=== PATIENT | female | born 1950 | race Caucasian/White ===

== ENCOUNTER → 2019-04-16 20:17 | Outpatient (CLI) | payer MEDICARE, OTHER, SELFPAY ==
[2019-04-16] MEDS: Zolpidem Tartrate 5 MG Tablet PO (21:53)
== END ==
PROVIDERS: Family Provider Family Medicine; PCP Family Medicine; Referring Provider Psychiatry & Neurology Neurology; Visit Provider Psychiatry & Neurology Neurology
DX: G47.33 Obstructive sleep apnea (adult) (pediatric) (principal)
CPT/HCPCS: 95811

== ENCOUNTER → 2019-04-26 | Outpatient (CLI) | payer MEDICARE, OTHER, SELFPAY | END | disposition home or self-care (01) | LOC: SL 12:49 | PROVIDERS: Family Provider Family Medicine; PCP Family Medicine; Referring Provider Psychiatry & Neurology Neurology; Visit Provider Psychiatry & Neurology Neurology | DX: G47.33 Obstructive sleep apnea (adult) (pediatric) (principal) ==

== ENCOUNTER → 2019-05-07 11:00 | Outpatient (CLI) | payer MEDICARE, OTHER, SELFPAY | PROVIDERS: Family Provider Family Medicine; PCP Family Medicine; Referring Provider Psychiatry & Neurology Neurology; Visit Provider Psychiatry & Neurology Neurology | DX: R69 Illness, unspecified (principal) ==

== ENCOUNTER → 2019-05-28 11:00 | Outpatient (CLI) | payer MEDICARE, OTHER, SELFPAY | PROVIDERS: Family Provider Family Medicine; PCP Family Medicine; Referring Provider Psychiatry & Neurology Neurology; Visit Provider Psychiatry & Neurology Neurology | DX: Z46.89 Encounter for fitting and adjustment of other specified devices (principal) ==

== ENCOUNTER 2019-12-16 20:07 | Inpatient (IN) | payer MEDICARE, OTHER, SELFPAY ==
[2019-12-16 19:29] VITALS: BP 167/90; PULSE 88; RESP 17; TEMP 37.3; O2SAT 100
--- NOTE | 2019-12-16 19:55 | EKG12_ITS ---
Test Reason : CP Blood Pressure : / mmHG Vent. Rate : 099 BPM Atrial Rate : 099 BPM P-R Int : 108 ms QRS Dur : 074 ms QT Int : 358 ms P-R-T Axes : 030 -12 025 degrees QTc Int : 459 ms Sinus rhythm with short IA Otherwise normal ECG When compared with ECG of 16-DEC-2019 20:16, MANUAL COMPARISON REQUIRED, DATA IS UNCONFIRMED Confirmed by YOSEF CAT, ALEXANDRO ([id number]), order editor STEF IQBAL ([id number]) on 12/18/2019 8:16:18 AM Referred By: DR GAVIN Confirmed By:ALEXANDRO NAVAS MD
[2019-12-16 20:08] VITALS: BMI 39.0
[2019-12-16 20:11] VITALS: BMI 39.1
--- NOTE | 2019-12-16 20:14 | PCM.HP.STD ---
Problem List (1) NSTEMI (non-ST elevated myocardial infarction) Status: Acute (2) HTN (hypertension) Status: Chronic (3) HLD (hyperlipidemia) Status: Chronic History of Present Illness Date of Admission: 12/16/19 Chief Complaint: CHEST PAIN The patient is a 68 year old F with a significant history of hypertension; hyperlipidemia; CVA; morbid obesity and prediabetes who presents at [place] emergency department with chest pain that has been going on for 3 to 4 days. She describes her chest pain as a discomfort. Further, she describes her chest pain as a strain. Her chest pain was episodic but on the day of presentation it become a persistent. The chest pain is across her entire chest. The chest pain does not radiate. However she has pain in bilateral shoulders and bilateral hips that she attributes to a flare of histoplasmosis. She denies any aggravating factors to the chest. She went to [place] emergency department where she was given Toradol. The Toradol helped improve her pain. Aside Toradol, moving around help with her pain. She denies any nausea; vomiting; shortness of breath or diaphoresis. She reported about a week ago she had palpitations and her pulse was about 132. Her blood pressure that time was 130/69. At [place] emergency department she refused nitroglycerin because of side effects that were discussed with her. She reported that on the day of presentation she took 162 mg of aspirin. Her initial troponin at [place] was 0.15. Her troponin increased to 0.28. The normal troponin level at [facility] is 0.07. Patient was started on heparin drip and bolus from [place]. Her d-dimer was elevated; but age-adjusted age-adjusted was normal. EKG at [place] did not show ST elevation.It showed non-specific ST abnormalities. Her father had hi first heart attack in the 50s and another one in the 70s. Reportedly she had a stress test and a heart cath about 5 years ago. She reported that both of these tests were normal. Past Medical History Past Medical History (Chronic Problems): Chronic Problems HTN (hypertension) (Chronic) HLD (hyperlipidemia) (Chronic) Allergies latex Allergy (Verified 12/16/19 19:32) Hives Penicillins Allergy (Verified 04/16/19 13:56) Unknown Home Medications: Ambulatory Orders Medication Instructions Recorded Ascorbic Acid [Vitamin C] 1,000 mg PO 12/16/19 Ascorbic Acid/Bioflavonoids [C 1 ea PO DAILY 12/16/19 1,600-[id number]-Bd Cap] Aspirin [Aspirin EC] 81 mg PO DAILY 12/16/19 Biotin/Silicon Diox/l-Cysteine 1 ea PO DAILY 12/16/19 [Orlin Matrix 5000 ER Tablet] Cholecalciferol (Vitamin D3) 5,000 unit PO QWEEK 12/16/19 [Vitamin D3] Green Tea [place] Extract [Green Tea] 250 mg PO DAILY 12/16/19 Hydrochlorothiazide [Hctz] 25 mg PO DAILY 12/16/19 Losartan Potassium [Cozaar] 25 mg PO DAILY 12/16/19 Lysine 1,000 mg PO PRN PRN 12/16/19 Magnesium Oxide 500 mg PO QODAY 12/16/19 Methylsulfonylmethane [MSM] 1,000 mg PO DAILY 12/16/19 Niacin (Inositol Niacinate) 500 mg PO DAILY 12/16/19 [Niacin 500 mg Capsule] Omeprazole 20 mg PO DAILY 12/16/19 Potassium 2 tab PO QHS 12/16/19 Potassium 3 tab PO BREAKFAST 12/16/19 Pyridoxine HCl [Vitamin B-6] 100 mg PO DAILY 12/16/19 Red Yeast Rice 600 mg PO DAILY 12/16/19 Thiamine HCl [Vitamin B-1] 250 mg PO DAILY 12/16/19 Turmeric/Turmeric Root Extract 1 ea PO TID 12/16/19 [Turmeric 450-50 mg Capsule] Ubidecarenone/Vit E/Vit E Mix 1 tab PO DAILY 12/16/19 [Co-Enzyme Q10 100 mg Softgel] Vit A Palm,D3 in Cod Liver Oil [Sv 1 ea PO DAILY 12/16/19 Cod Liver Oil Softgel] Surgical History: - - Repair of torn meniscus Lives: Alone Smoking Status: Never smoker Alcohol: Occasional - *Family History Maternal History Items: Heart Disease Paternal History Items: Heart Disease - His father had a first heart attack in the 50s and another one in the 70s. Review of Systems Constitutional: Denies: Chills, Fever, Weight Change HEENT: Denies: Head Aches, Sinus Congestion, Sinus Drainage Cardiovascular: Reports: Chest Pain, Palpitations Respiratory: Denies: Cough, Shortness of breath at rest, Sputum production Gastrointestinal: Denies: Abdominal Pain, Nausea, Vomiting Genitourinary: Denies: Dysuria Musculoskeletal: Reports: Joint Pain. Denies: Joint Tenderness Skin: Denies: Rash, Wounds Neurological: Denies: Numbness, Tingling, Focal weakness Psychiatric: Denies: Anxiety, Depression, Homicidal Ideations, Suicidal Ideations Hematologic/ Lymphatic: Denies: Easy Bruising, Easy Bleeding VTE Information - Inpt Only VTE Present on Admission: No VTE Mechan Device Prophylaxis: None VTE Pharm Prophylaxis ordered?: No Reason prophylaxis not ordered:: Treatment Not Indicated - Started on heparin drip for non-ST elevation CO Patient Problems: Active and Suspected Problems NSTEMI (non-ST elevated myocardial infarction) (Acute) - Physical Exam Vitals/I&O's: Vital Signs Temp Pulse Resp BP Pulse Ox 99.2 F H 88 17 167/90 H 100 12/16/19 19:29 12/16/19 19:29 12/16/19 19:29 12/16/19 19:29 12/16/19 19:29 Oxygen Delivery Method Room Air Weight: 106.5 kg Body Mass Index (BMI) 39.0 General: Alert, Oriented x3, Cooperative HEENT: Atraumatic, PERRLA, EOMI, Normocephalic Neck: Supple, No JVD, Negative Carotid Bruits Lungs: Clear to auscultation, Normal air movement Cardiovascular: Regular rate, Normal S1, Normal S2, No murmurs Abdomen: Bowel Sounds Present, Soft, Non Tender, Obese Extremities: No edema, Capillary Refill Less than 3 Seconds Skin: No rashes, No breakdown Musculoskeletal: No Tenderness to Palpation of Joints or Extremities Neurological: Cranial nerves II-XII grossly intact Psych/Mental Status: Normal Affect, Appropriate Assessment/Plan All Active Problems NSTEMI (non-ST elevated myocardial infarction) (Acute) The patient is a 68 year old F with a significant history of hypertension; hyperlipidemia; CVA; morbid obesity and prediabetes who presents emergency department with chest pain that has been going on for 3 to 4 days; and found to have elevation of troponin consistent of non-ST elevation CO. Non-ST elevation CO Place on a monitored bed at PCU CXR at [facility] showed no acute abnormalities. EKG independently reviewed confirms no ST elevation. It showed nonspecific ST abnormalities. EKG at [facility] and hospital was unchanged. Reportedly took aspirin 172 mg on the day of presentation. ASA 81 mg p.o. daily continue Patient does not want any nitroglycerin. We will check lipid panel. Statin: Patient refuses statins. She reported that she had myalgia with statins. She is on multiple home remedies. Anticoagulation: Received heparin bolus and heparin drip was started from [place].; Continue heparin drip. Anti-P2Y12 Receptor antibody: Plavix and Brilinta were discussed with patient. Patient refused secondary to possible side effects. Serial cardiac enzymes Stat EKG as needed for chest pain Patient with low-grade fever ?Influenza screen. ordered Trend CBC and BMP. The case were discussed with cardiology. Cardiology will see patient in a.m. Keep patient on clear liquids in a.m. Hypertension On presentation blood pressure was not within goal. HCTZ; and Cozaar continued Labetalol PRN ordered. Trend blood pressures and adjust blood pressure medications. Morbid Obesity BMI of 39.1. Lifestyle modification discussed. DVT Prophylaxis Not indicated since patient is on heparin drip. Code Visit Inpatient E&M: 91957 Init Hosp L3
[2019-12-16 20:27] VITALS: PULSE 104
[2019-12-16 21:02] VITALS: O2SAT 99
[2019-12-16] MEDS: HEPARIN/D5w 25,000 UNITS 25,000 UNITS/250 ML IV.SOLN. 10 UNITS IV (21:10)
[2019-12-16 23:01] VITALS: PULSE 89
[2019-12-17] VITALS (17 sets, daily range): BP systolic 106–152; BP diastolic 50–78; PULSE 85–106; RESP 14–18; TEMP 36.4–37.1; O2SAT 93–98
[2019-12-17 00:25] LABS: Partial Thromboplast Time 37.4 Seconds (24.1-36.2)
[2019-12-17] MEDS: Ketorolac 10 MG Tablet PO (00:45)
[2019-12-17] MEDS: Heparin Injection (Vial) 5,000 UNIT/ML VIAL IV ×2 (00:48→07:39)
[2019-12-17] MEDS: 0.9% Saline Lock 10 ML Syringe IV ×3 (00:55→12:12)
--- NOTE | 2019-12-17 01:02 | EKG12_ITS ---
Test Reason : CP ADMIT Blood Pressure : / mmHG Vent. Rate : 094 BPM Atrial Rate : 094 BPM P-R Int : 112 ms QRS Dur : 078 ms QT Int : 368 ms P-R-T Axes : 043 -02 032 degrees QTc Int : 460 ms Normal sinus rhythm Nonspecific ST abnormality Abnormal ECG No previous ECGs available Confirmed by YOSEF CAT, ALEXANDRO ([id number]), conservation coordinator STEF IQBAL ([id number]) on 12/18/2019 8:16:31 AM Referred By: DR GAVIN Confirmed By:ALEXANDRO NAVAS MD
--- NOTE | 2019-12-17 01:31 | PCM.PN.BLA ---
Progress Note Patient complaining of chest pain 5/10; EKG with no STEMI; or acute ST or T-wave abnormality. Willing to accept nitro. Nitroglycerin sublingual prescribed. STROKE Vital Signs/Narrative: Vital Signs Temp Pulse Resp BP Pulse Ox 12/17/19 00:56 98.4 F 99 17 152/75 H 98 12/16/19 23:01 89
[2019-12-17] MEDS: Nitroglycerin (INPATIENT USE) 0.4 MG TAB.SUBL SUBLINGUAL ×2 (01:41→01:48)
--- NOTE | 2019-12-17 01:59 | NURSING ---
Pt given nitro 0.4mg SL x2 tablets. Pt rates CP @ 01/14 currently. Pt refusing any further doses of nitro. AHillerRN
[2019-12-17 02:56] LABS: Absolute Neutrophil Count 7.9 X10^3/uL (2.0-7.7); Basophil# 0.03 X10^3/uL; Basophil% 0.3 % (0-1); Eosinophil# 0.06 X10^3/uL; Eosinophils% 0.5 % (0-5); Hematocrit 32.7 % (37-47); Hemoglobin 10.5 g/dL (12.0-15.0); Lymphocyte % 23.4 % (19-41); Mean Corp Hgb Conc 32.1 g/dL (32-36); Mean Corpuscular Hgb 28.8 pg (27.0-32.0); Mean Corpuscular Volume 89.8 fL (81-99); Monocyte# 0.81 X10^3/uL; NRBC Flagged by Analyzer 0 % (0-5); Neutrophil # 7.93 X10^3/uL (2.7-7.7); Neutrophil % 68.6 % (47-70); Platelet Count 299 K/mm3 (150-450); RBC Distribution Width CV 12.8 % (11.6-14.6); RBC Distribution Width SD 42.5 fl (35.1-43.9); Red Blood Count 3.64 M/mm3 (4.2-5.4); White Blood Count 11.6 K/mm3 (4.4-11.0)
[2019-12-17 03:11] LABS: Anion Gap 5 (5-15); BUN 15 mg/dL (7-18); BUN/Creat Ratio 14.2 RATIO (10-20); Calcium,Total 8.7 mg/dL (8.5-10.1); Chloride 104 mmol/L (98-107); Cholesterol 229 mg/dL (200); Creatinine, Serum 1.06 mg/dL (0.55-1.02); EST Glomerular Filtration Rate 55 mL/min (>60); Est Glom Filt Rate - Afr Amer 66 mL/min (>60); Estimated Creatinine Clearance 46.34 ml/min; Glucose 142 mg/dL (74-106); High Density Lipoprotein 56 mg/dL; Potassium 3.4 mmol/L (3.5-5.1); Sodium Level 137 mmol/L (136-145); Triglycerides 95 mg/dL; Very Low Density Lipoprotein 19 mg/dL (5-40)
[2019-12-17] MEDS: Aspirin E.C. 81 MG Tablet PO (05:57)
[2019-12-17] MEDS: Losartan Potassium 25 MG Tablet PO (05:57)
[2019-12-17] MEDS: Pantoprazole Sodium 20 MG Tablet PO (05:57)
[2019-12-17 06:31] LABS: Partial Thromboplast Time 53.2 Seconds (24.1-36.2)
--- NOTE | 2019-12-17 11:25 | PCM.PN.HOSP ---
Patient Problems: Active and Suspected Problems NSTEMI (non-ST elevated myocardial infarction) (Acute) Subjective: Feeling a little better however she still has the chest pain though it is milder than what it had been. Vitals/I&O's: Vital Signs Temp Pulse Resp BP Pulse Ox 97.6 F L 100 14 135/67 H 93 12/17/19 10:45 12/17/19 10:45 12/17/19 10:45 12/17/19 10:45 12/17/19 10:45 Oxygen Flow Rate (L/min) 2 Oxygen Delivery Method Room Air Weight: 234 lb 12.677 oz Body Mass Index (BMI) 39.0 Intake and Output for Last 24 Hours 12/15/19 12/16/19 12/17/19 23:59 23:59 23:59 Intake Total 250 / 250 118.67 / 118.67 Balance 250 / 250 118.67 / 118.67 General: Alert, Oriented x3, Cooperative, No apparent distress HEENT: Atraumatic, PERRLA, EOMI, Normocephalic Oral: Moist Mucosa Neck: Supple, No JVD Lungs: Clear to auscultation, Normal air movement, No rhonchi, No wheeze, No rales Cardiovascular: Regular rate, Regular Rhythm, Normal S1, Normal S2, No murmurs Abdomen: Soft, Non Tender, Non-Distended, No Hepato-splenomegaly Extremities: No edema, Capillary Refill Less than 3 Seconds Skin: No rashes, No breakdown Neurological: Neuro grossly intact, Sensory exam intact to light touch and pain Psych/Mental Status: Normal Affect, Appropriate Laboratory Results 12/16/19 20:49: Troponin I 1.460 H* 12/16/19 23:54: Troponin I 2.250 H* 12/16/19 23:54: APTT 37.4 H 12/17/19 02:38: WBC 11.6 H, RBC 3.64 L, Hgb 10.5 L, Hct 32.7 L, MCV 89.8, MCH 28.8, MCHC 32.1, RDW Std Deviation 42.5, RDW Coeff of [place] 12.8, Plt Count 299, MPV 10.0, Immature Gran % (Auto) 0.200, Neut % (Auto) 68.6, Lymph % (Auto) 23.4, [place] % (Auto) 7.0, Eos % (Auto) 0.5, Baso % (Auto) 0.3, Absolute Neuts (auto) 7.9 H, Absolute Lymphs (auto) 2.70, Nucleated RBC % 0 12/17/19 02:38: Sodium 137, Potassium 3.4 L, Chloride 104, Carbon Dioxide 28.0, Anion Gap 5, BUN 15, Creatinine 1.06 H, Estim Creat Clear Calc 46.34, Est GFR (MDRD) Af Amer 66, Est GFR (MDRD) Non-Af 55 L, BUN/Creatinine Ratio 14.2, Glucose 142 H, Calcium 8.7, Triglycerides 95, Cholesterol 229 H, LDL Cholesterol 154 H, VLDL Cholesterol 19, HDL Cholesterol 56 12/17/19 02:38: Troponin I 1.940 H* 12/17/19 05:53: APTT 53.2 H Current Medications Acetaminophen (Tylenol) 650 mg PO Q6H PRN PRN PRN Reason: Pain Score 1-10/Temp > 100.7 F Aspirin (Ecotrin) 81 mg PO DAILY@0800 [facility] Last Admin: 12/17/19 05:57 Dose: 81 mg Documented by: Glucagon () 1 mg IM .X1 PRN PRN Reason: Hypoglycemia Heparin Sodium (Porcine) (Heparin Na) 0 unit IV UD PRN; Protocol Last Admin: 12/17/19 07:39 Dose: 1,000 unit Documented by: Hydrochlorothiazide (Hctz) 25 mg PO DAILY [facility] Heparin Sodium/Dextrose () 25,000 units in 250 mls @ 15 mls/hr IV .[id number] [facility]; Protocol Last Titration: 12/17/19 07:40 Dose: 1,300 units/hr, 13 mls/hr Documented by: Dextrose (Dextrose 10%-Water) 250 mls @ 999 mls/hr IV .Q16M PRN; Protocol PRN Reason: HYPOGLYCEMIA Ketorolac Tromethamine (Toradol) 10 mg PO Q6H PRN PRN PRN Reason: pain 4-08/16 Stop: 12/22/19 00:18 Last Admin: 12/17/19 00:45 Dose: 10 mg Documented by: Labetalol HCl (Trandate) 10 mg IV Q4H PRN PRN PRN Reason: SBP > 160 Losartan Potassium (Cozaar) 25 mg PO DAILY [facility] Last Admin: 12/17/19 05:57 Dose: 25 mg Documented by: Magnesium Oxide (Mag-Ox 400) 400 mg PO QODAY [facility] Melatonin (Melatonin) 3 mg PO QHS PRN PRN PRN Reason: INSOMNIA Nitroglycerin (Nitrostat) 0.4 mg SUBLINGUAL Q5M PRN PRN Reason: CARDIAC/CHEST PAIN Last Admin: 12/17/19 01:48 Dose: 1 tablet Documented by: Ondansetron HCl (Zofran) 4 mg IV Q8H PRN PRN PRN Reason: NAUSEA/VOMITING Pantoprazole Sodium (Protonix) 20 mg PO DAILY [facility] Last Admin: 12/17/19 05:57 Dose: 20 mg Documented by: Pyridoxine HCl (Vitamin B-6) 100 mg PO DAILY [facility] Sodium Chloride () 10 - 40 ml IV UD PRN PRN Reason: SALINE FLUSH Last Admin: 12/17/19 07:40 Dose: 10 ml Documented by: STROKE Vital Signs/Narrative: Vital Signs Temp Pulse Resp BP Pulse Ox 12/17/19 10:45 97.6 F L 100 14 135/67 H 93 Medical Necessity - Tobacco Use Smoking Status: Never smoker Assessment/Plan All Active Problems NSTEMI (non-ST elevated myocardial infarction) (Acute) 1. NSTEMI/HTN/morbid obesity -It appears that the troponin peaked at 2.25 and trended down today to 1.94 -Plan is for heart cath by cardiology, she did have that experience about 20 years ago when they attempted to go through her groin so she is little bit nervous about the procedure -I discussed with her that if she were to have the procedure she will need to be on both aspirin and Plavix or aspirin and Brilinta after discharge she does seem okay with it though a little bit reluctant, she has been having issues taking medications for fear of side effects -LDL is 154, she is refusing statins secondary to myalgias, she is on red yeast rice which does have a statin and it -Continue with her home blood pressure medications -Had a 30-minute discussion on lifestyle modifications as well as diet and exercise DVT: Heparin drip Code Visit Inpatient E&M: 47389 Subs Hosp L2
--- NOTE | 2019-12-17 12:15 | NURSING ---
Called report to Sunday CARDOSO in [employer]
--- NOTE | 2019-12-17 12:16 | CON.PCM_ITS ---
Problem List (1) NSTEMI (non-ST elevated myocardial infarction) Status: Acute Reason for Consult Date of Consultation: 12/17/19 History of Present Illness: The patient is a 68 year old F with a significant history of hypertension; hyperlipidemia; CVA; morbid obesity and prediabetes who presents at [place] emergency department with chest pain that has been going on for 3 to 4 days. She describes her chest pain as a discomfort. Further, she describes her chest pain as a strain. Her chest pain was episodic but on the day of presentation it become a persistent. The chest pain is across her entire chest. The chest pain does not radiate. However she has pain in bilateral shoulders and bilateral hips that she attributes to a flare of histoplasmosis. She denies any aggravating factors to the chest. She went to [place] emergency department where she was given Toradol. The Toradol helped improve her pain. Aside Toradol, moving around help with her pain. She denies any nausea; vomiting; shortness of breath or diaphoresis. She reported about a week ago she had palpitations and her pulse was about 132. Her blood pressure that time was 130/69. At [place] emergency department she refused nitroglycerin because of side effects that were discussed with her. She reported that on the day of presentation she took 162 mg of aspirin. Her initial troponin at [place] was 0.15. Her troponin increased to 0.28. The normal troponin level at [facility] is 0.07. Patient was started on heparin drip and bolus from [place]. Her d-dimer was elevated; but age-adjusted age-adjusted was normal. EKG at [place] did not show ST elevation.It showed non-specific ST abnormalities. Her father had hi first heart attack in the 50s and another one in the 70s. Reportedly she had a stress test and a heart cath about 5 years ago. She reported that both of these tests were normal. Patient's troponin has gone up to 2.25. She continues to have chest pain. She states that her chest pain has become worse since presentation. He does have history of intracranial bleed which appears to be involving the occipital lobe going by her description. This was in February 2019. Review of systems: All systems reviewed. All else is negative except as in HPI Past Medical History Allergies/Adverse Reactions: Allergies latex Allergy (Verified 12/16/19 19:32) Hives Penicillins Allergy (Verified 04/16/19 13:56) Unknown Home Medications: Ambulatory Orders Medication Instructions Recorded Ascorbic Acid [Vitamin C] 1,000 mg PO 12/16/19 Ascorbic Acid/Bioflavonoids [C 1 ea PO DAILY 12/16/19 1,371-Mnwfvdtolniqr-Jq Cap] Aspirin [Aspirin EC] 81 mg PO DAILY 12/16/19 Biotin/Silicon Diox/l-Cysteine 1 ea PO DAILY 12/16/19 [Orlin Matrix 5000 ER Tablet] Cholecalciferol (Vitamin D3) 5,000 unit PO QWEEK 12/16/19 [Vitamin D3] Green Tea [place] Extract [Green Tea] 250 mg PO DAILY 12/16/19 Hydrochlorothiazide [Hctz] 25 mg PO DAILY 12/16/19 Losartan Potassium [Cozaar] 25 mg PO DAILY 12/16/19 Lysine 1,000 mg PO PRN PRN 12/16/19 Magnesium Oxide 500 mg PO QODAY 12/16/19 Methylsulfonylmethane [MSM] 1,000 mg PO DAILY 12/16/19 Niacin (Inositol Niacinate) 500 mg PO DAILY 12/16/19 [Niacin 500 mg Capsule] Omeprazole 20 mg PO DAILY 12/16/19 Potassium 2 tab PO QHS 12/16/19 Potassium 3 tab PO BREAKFAST 12/16/19 Pyridoxine HCl [Vitamin B-6] 100 mg PO DAILY 12/16/19 Red Yeast Rice 600 mg PO DAILY 12/16/19 Thiamine HCl [Vitamin B-1] 250 mg PO DAILY 12/16/19 Turmeric/Turmeric Root Extract 1 ea PO TID 12/16/19 [Turmeric 450-50 mg Capsule] Ubidecarenone/Vit E/Vit E Mix 1 tab PO DAILY 12/16/19 [Co-Enzyme Q10 100 mg Softgel] Vit A Palm,D3 in Cod Liver Oil [Sv 1 ea PO DAILY 12/16/19 Cod Liver Oil Softgel] Past Medical History (Chronic Problems): Chronic Problems HTN (hypertension) (Chronic) HLD (hyperlipidemia) (Chronic) Surgical History: - - Repair of torn meniscus - *Family History Maternal History Items: Heart Disease Paternal History Items: Heart Disease - His father had a first heart attack in the 50s and another one in the 70s. Lives: Alone Smoking Status: Never smoker Alcohol: Occasional Objective: Vital Signs Temp Pulse Resp BP Pulse Ox 97.6 F L 100 14 135/67 H 93 12/17/19 10:45 12/17/19 10:45 12/17/19 10:45 12/17/19 10:45 12/17/19 10:45 Oxygen Flow Rate (L/min) 2 Oxygen Delivery Method Room Air Weight: 234 lb 12.677 oz Body Mass Index (BMI) 39.0 Intake and Output for Last 24 Hours 12/15/19 12/16/19 12/17/19 23:59 23:59 23:59 Intake Total 250 / 250 177.82 / 177.82 Balance 250 / 250 177.82 / 177.82 General: Awake, Alert, Oriented x 3 HEENT: Atraumatic Oral: Moist Mucosa Neck: Supple Lungs: Clear to auscultation Cardiovascular: Regular Rhythm Abdomen: Soft Skin: No Rashes Psych/Mental Status: Appropriate 12/16/19 20:49: Troponin I 1.460 H* 12/16/19 23:54: Troponin I 2.250 H* 12/16/19 23:54: APTT 37.4 H 12/17/19 02:38: WBC 11.6 H, RBC 3.64 L, Hgb 10.5 L, Hct 32.7 L, MCV 89.8, MCH 28.8, MCHC 32.1, Plt Count 299, MPV 10.0, Immature Gran % (Auto) 0.200, Neut % (Auto) 68.6, Lymph % (Auto) 23.4, [place] % (Auto) 7.0, Eos % (Auto) 0.5, Baso % (Auto) 0.3, Absolute Neuts (auto) 7.9 H, Nucleated RBC % 0 12/17/19 02:38: Sodium 137, Potassium 3.4 L, Chloride 104, Carbon Dioxide 28.0, Anion Gap 5, BUN 15, Creatinine 1.06 H, Est GFR (MDRD) Af Amer 66, Est GFR (MDRD) Non-Af 55 L, BUN/Creatinine Ratio 14.2, Glucose 142 H, Calcium 8.7, Tri glycerides 95, Cholesterol 229 H, LDL Cholesterol 154 H, VLDL Cholesterol 19, HDL Cholesterol 56 12/17/19 02:38: Troponin I 1.940 H* 12/17/19 05:53: APTT 53.2 H Rhythm: EKG: ECHO: Stress Test: Cardiac Cath: PCI: CT Surgery: Holter monitor: EPS: PPM: CXR: Chest CT Scan: Assessment/Plan 1. Chest pain: The chest pain clinically has some atypical features. She does say the chest pain is worse on deep inspiration. However her troponin has gone up. I think will be reasonable to proceed with coronary angiography. If the coronary angiography is negative for any significant stenosis then we should consider CT angiogram to rule out PE. She could be having myopericarditis as well. I discussed the risks and benefits with the patient and patient is agreeable to proceed. If she does have significant stenoses that need PCI then we may have to proceed with PCI and keep the patient on dual antiplatelet therapy. I discussed the risk of bleeding including intracranial bleed with the patient. Also in the setting of a non-STEMI since the patient is having ongoing chest pain I think it will be reasonable to proceed with coronary angiography and PCI if required. Patient also understands the risks and benefits and agrees with this approach.
--- NOTE | 2019-12-17 13:06 | CASEMGMT ---
Case Management Progress Note: This automobile and property underwriter to patient bedside to complete initial RNCM assessment, patient currently not at bedside and getting procedure-heart cath at this time per primary RN. RNCM continue to follow for assessment completion and care coordination needs. Bhaskar Nails RNCM
[2019-12-17] MEDS: 0.9% Normal Saline 1,000 ML 60 ML IV (13:45)
[2019-12-17] MEDS: hydroCHLOROthiazide 25 MG Tablet PO (13:47)
[2019-12-17] MEDS: Pyridoxine HCl 100 MG Tablet PO (13:47)
[2019-12-17] MEDS: Ibuprofen 400 MG Tablet PO ×2 (13:56→18:41)
--- NOTE | 2019-12-17 14:00 | CT_ITS ---
STUDY: CTA CHEST REASON FOR EXAM: Female, 68 years old. Pericarditis, PE, chest pain x 3 days, NSTEMI, heart cath today. Hx hypertension. RADIATION DOSAGE (If Supplied By Facility): CTDIvol = ( 11.33 ) mGy, DLP = ( 493.57 ) mGycm TECHNIQUE: The examination was performed with the intravenous administration of 100mL Isovue 370. Post-processing of the angiographic images was performed, with multiplanar reformation and 3D reconstruction. Individualized dose optimization techniques were used for this CT. COMPARISON: None. FINDINGS: Normal enhancement of the main pulmonary artery and right and left pulmonary arteries. Normal enhancement of the bilateral peripheral pulmonary arteries. There is no demonstrated pulmonary embolism. Normal thoracic aorta and visualized great vessels. There is no demonstrated aortic dissection. There are calcifications of the coronary arteries. Normal mediastinum. Normal hilar regions. Normal visualized trachea and bronchi. The lungs are well expanded. Minimal increased linear markings at the lung bases suggestive of a linear scarring and/or atelectasis. Minimal increased markings in the anterior medial aspect of the right upper lobe. Normal pleura. Normal chest wall structures. There are degenerative changes of thoracic spine. Normal visualized upper abdomen. CT/CTA Chest W/WO Contrast IMPRESSION: No acute abnormality is seen. Electronically Signed: Nghia Brown, at 15:40 EST , Service support ,
--- NOTE | 2019-12-17 14:45 | CASEMGMT ---
JANAE CALHOUN assessment: Face to Face with patient for initial transition planning/care coordination assessment. JANAE CALHOUN introduced self and role at [facility], pt voices understanding and consents to assessment at this time. Pt is sitting up in bed in no distress at this time. Pt is A/Ox4 at this time and answers all questions appropriately at this time. Care providers, pharmacy, and demographics verified at this time. Presentation: Direct admit from [place] [facility] for CP x3-4 days Admitting dx: NSTEMI PCP: Carley Mcdonnell NP at [facility] Specialists: Jae, neuro but has not seen in a year; Pt states will now have tape duplicator and most likely will use [place] [facility] Preferred Pharmacy: [facility] Insurance: MCR A/B, AeR Prescription Benefit: [employer]vision Living Will/HPOA: Pt states does not currently have LW/HPOA but is in the process of completing with her material control associate and states that both her daughters, Jaron Mccoy and Melissa Hong, will be co-HPOA's. Pt declines need for any further AD info at this time. LNOK: Jaron Mccoy, daughter; Melissa Hong, daughter Living Arrangements: Pt states lives alone in 2 story home with bedroom on the 2nd floor and states no concerns at home at this time. Pt states is independent with ADL's. Transportation: Pt states drives self and states no transportation concerns at this time. DME/HHC: Pt states no current DME or need for any at this time. Pt states no hx of HHC or SNF in the past. Pt states no concerns with going home at time of discharge. Pt states is retired. Pt states does not smoke or drink ETOH. Pt states no further concerns/needs at this time. CM to follow for any further discharge planning/needs. Advised pt to ask for CM if any further questions/concerns/needs arise, voices understanding. Pt Goal: Home Plan: [place] JANAE CALHOUN
[2019-12-17] MEDS: Morphine 2 MG/ML Syringe 4 MG IV (21:37)
[2019-12-18] MEDS: Ibuprofen 400 MG Tablet PO ×3 (00:26→13:13)
[2019-12-18 02:54] VITALS: PULSE 76
[2019-12-18 03:20] VITALS: BP 120/62; PULSE 83; RESP 12; TEMP 37.1; O2SAT 96
[2019-12-18 06:05] LABS: Absolute Lymphocyte Count 2.32 X10^3/uL (0.83-4.51); Absolute Neutrophil Count 5.4 X10^3/uL (2.0-7.7); Basophil# 0.03 X10^3/uL; Basophil% 0.3 % (0-1); Eosinophil# 0.22 X10^3/uL; Eosinophils% 2.5 % (0-5); Hematocrit 33.4 % (37-47); Hemoglobin 10.6 g/dL (12.0-15.0); Lymphocyte # 2.32 X10^3/ul (4.0); Lymphocyte % 26.6 % (19-41); Mean Corp Hgb Conc 31.7 g/dL (32-36); Mean Corpuscular Hgb 29.1 pg (27.0-32.0); Mean Corpuscular Volume 91.8 fL (81-99); Mean Platelet Vol. 9.9 fl (6.2-12.0); Monocyte# 0.77 X10^3/uL; Monocyte% 8.8 % (0-10); NRBC Flagged by Analyzer 0 % (0-5); Neutrophil # 5.37 X10^3/uL (2.7-7.7); Neutrophil % 61.6 % (47-70); Platelet Count 291 K/mm3 (150-450); RBC Distribution Width CV 12.8 % (11.6-14.6); RBC Distribution Width SD 42.7 fl (35.1-43.9); Red Blood Count 3.64 M/mm3 (4.2-5.4); White Blood Count 8.7 K/mm3 (4.4-11.0)
[2019-12-18 06:21] LABS: Anion Gap 4 (5-15); BUN 16 mg/dL (7-18); BUN/Creat Ratio 14.8 RATIO (10-20); Calcium,Total 9.1 mg/dL (8.5-10.1); Chloride 106 mmol/L (98-107); Creatinine, Serum 1.08 mg/dL (0.55-1.02); EST Glomerular Filtration Rate 54 mL/min (>60); Est Glom Filt Rate - Afr Amer 65 mL/min (>60); Estimated Creatinine Clearance 45.48 ml/min; Glucose 111 mg/dL (74-106); Potassium 3.6 mmol/L (3.5-5.1); Sodium Level 138 mmol/L (136-145)
[2019-12-18 06:59] VITALS: PULSE 91
[2019-12-18 07:37] VITALS: O2SAT 95
[2019-12-18 09:20] VITALS: BP 118/67; PULSE 98; RESP 16; TEMP 36.4; O2SAT 97
[2019-12-18] MEDS: Pyridoxine HCl 100 MG Tablet PO (09:27)
[2019-12-18] MEDS: Pantoprazole Sodium 20 MG Tablet PO (09:27)
[2019-12-18] MEDS: Losartan Potassium 25 MG Tablet PO (09:28)
[2019-12-18] MEDS: Aspirin E.C. 81 MG Tablet PO (09:28)
--- NOTE | 2019-12-18 10:32 | PCM.DC ---
- Discharge Diagnoses Current Active Problems: Current Active and Chronic Problems NSTEMI (non-ST elevated myocardial infarction) (Acute) HTN (hypertension) (Chronic) HLD (hyperlipidemia) (Chronic) You will use the following diet at home:: Cardiac Your food should be the consistency of: Regular Your liquids should be the consistency of: Regular/Thin Discharge Activity: Return to Normal Activity Call your doctor if you observe: Fever of 101 or Higher, Shortness of breath, Dizziness, Fainting spells, Swelling in the ankles, Chest pain, Increased palpitations (irregular heartbeat) Allergies/Adverse Reactions: Allergies latex Allergy (Verified 12/16/19 19:32) Hives Penicillins Allergy (Verified 04/16/19 13:56) Unknown Medications to take at Discharge Ascorbic Acid [Vitamin C] 1,000 mg PO 12/16/19 Ascorbic Acid/Bioflavonoids [C 1,154-Gmtbqqbwvirfo-Mn Cap] 1 ea PO DAILY 12/16/19 Aspirin [Aspirin EC] 81 mg PO DAILY 12/16/19 Biotin/Silicon Diox/l-Cysteine [[place] Matrix 5000 ER Tablet] 1 ea PO DAILY 12/16/19 Cholecalciferol (Vitamin D3) [Vitamin D3] 5,000 unit PO QWEEK 12/16/19 Green Tea [employer] Extract [Green Tea] 250 mg PO DAILY 12/16/19 Hydrochlorothiazide [Hctz] 25 mg PO DAILY 12/16/19 Losartan Potassium [Cozaar] 25 mg PO DAILY 12/16/19 Lysine 1,000 mg PO PRN PRN 12/16/19 Magnesium Oxide 500 mg PO QODAY 12/16/19 Methylsulfonylmethane [MSM] 1,000 mg PO DAILY 12/16/19 Niacin (Inositol Niacinate) [Niacin 500 mg Capsule] 500 mg PO DAILY 12/16/19 Omeprazole 20 mg PO DAILY 12/16/19 Potassium 2 tab PO QHS 12/16/19 Potassium 3 tab PO BREAKFAST 12/16/19 Pyridoxine HCl [Vitamin B-6] 100 mg PO DAILY 12/16/19 Red Yeast Rice 600 mg PO DAILY 12/16/19 Thiamine HCl [Vitamin B-1] 250 mg PO DAILY 12/16/19 Turmeric/Turmeric Root Extract [Turmeric 450-50 mg Capsule] 1 ea PO TID 12/16/19 Ubidecarenone/Vit E/Vit E Mix [Co-Enzyme Q10 100 mg Softgel] 1 tab PO DAILY 12/16/19 Vit A Palm,D3 in Cod Liver Oil [Sv Cod Liver Oil Softgel] 1 ea PO DAILY 12/16/19 Colchicine 0.6 mg PO BID #60 tab 12/18/19 The following prescriptions were given: Colchicine 0.6 mg PO BID #60 tab Transmission Status: Pending to [facility] Primary Care Physician: Carley Mcdonnell NP-C [Primary Care Provider] - Please follow up with your Primary Care Physician in: 3-5 days Test Results: Test results from this visit will be discussed in further detail at your follow-up appointment, if applicable. Please Follow Up With: Arnold Cleveland MD When: 2-4 weeks
--- NOTE | 2019-12-18 11:12 | PCM.DC.SUM ---
Discharge Date and Diagnosis - Problem List Patient Problems: Active and Suspected Problems NSTEMI (non-ST elevated myocardial infarction) (Acute) Date of Admission: 12/16/19 Date of Discharge: 12/18/19 - Primary Discharge Diagnosis Active and Suspected Problems NSTEMI (non-ST elevated myocardial infarction) (Acute) - Secondary Discharge Diagnosis Chronic Problems HTN (hypertension) (Chronic) HLD (hyperlipidemia) (Chronic) Hospital Course and Treatment Imaging Results: CTA Chest: IMPRESSION: No acute abnormality is seen. Consults: Cardiology Operations: None Procedures: Cardiac catheterization - No Coronary artery disease Summary of Care Provided: Per HPI: The patient is a 68 year old F with a significant history of hypertension; hyperlipidemia; CVA; morbid obesity and prediabetes who presents at [place] emergency department with chest pain that has been going on for 3 to 4 days. She describes her chest pain as a discomfort. Further, she describes her chest pain as a strain. Her chest pain was episodic but on the day of presentation it become a persistent. The chest pain is across her entire chest. The chest pain does not radiate. However she has pain in bilateral shoulders and bilateral hips that she attributes to a flare of histoplasmosis. She denies any aggravating factors to the chest. She went to [facility] emergency department where she was given Toradol. The Toradol helped improve her pain. Aside Toradol, moving around help with her pain. She denies any nausea; vomiting; shortness of breath or diaphoresis. She reported about a week ago she had palpitations and her pulse was about 132. Her blood pressure that time was 130/69. At [facility] emergency department she refused nitroglycerin because of side effects that were discussed with her. She reported that on the day of presentation she took 162 mg of aspirin. Her initial troponin at [facility] was 0.15. Her troponin increased to 0.28. The normal troponin level at [facility] is 0.07. Patient was started on heparin drip and bolus from [facility]. Her d-dimer was elevated; but age-adjusted age-adjusted was normal. EKG at [facility] did not show ST elevation.It showed non-specific ST abnormalities. Her father had hi first heart attack in the 50s and another one in the 70s. Reportedly she had a stress test and a heart cath about 5 years ago. She reported that both of these tests were normal Hospital Course: 1. NSTEMI/HTN/Morbid obesity/Wmvgbvvyrcjw-67-hcqn-old female who presented to the hospital with chest pain. She initially presented to [facility] and was transferred here for an elevated troponin. She was taken to for cardiac cath and was found to have normal coronary arteries. Cardiology felt that she could either be having a PE or this could be a pericarditis. A CTA of her chest was ordered which showed that she had no PE, and she states that her chest pain is better when sitting up and slightly forward which is consistent with a diagnosis of pericarditis. She was started on colchicine twice daily and she will be discharged on at least 1 month supply of the colchicine she will need to follow-up with both her PCP and her organic chemistry teacher within that time. And they can decide if she needs further treatment. Also do recommend that she can continue taking ibuprofen at home for the pain as needed. I discussed the risks and benefits of discharge with her and she expressed understanding and would like to go home today. There were no changes made to her other medications, she seems highly resistant to taking medications due to the potential side effects of those medications therefore she takes unregulated supplements. I did have an extensive discussion with her on lifestyle modifications to prevent a future heart attack. 2. Her other medical diagnoses were evaluated and her medications were continued where appropriate Patient Problems: Active and Suspected Problems NSTEMI (non-ST elevated myocardial infarction) (Acute) - Physical Exam Vitals/I&O's: Vital Signs Temp Pulse Resp BP Pulse Ox 97.6 F L 98 16 118/67 97 12/18/19 09:20 12/18/19 09:20 12/18/19 09:20 12/18/19 09:20 12/18/19 09:20 Oxygen Flow Rate (L/min) 2 Oxygen Delivery Method Room Air Weight: 234 lb 12.677 oz Body Mass Index (BMI) 39.0 Intake and Output for Last 24 Hours 12/16/19 12/17/19 12/18/19 23:59 23:59 23:59 Intake Total 250 / 250 1433.82 / 1433.82 200 / 200 Balance 250 / 250 1433.82 / 1433.82 200 / 200 General: Alert, Oriented x3, Cooperative, No apparent distress HEENT: Atraumatic, PERRLA, EOMI, Normocephalic Oral: Moist Mucosa Neck: Supple, No JVD Lungs: Clear to auscultation, Normal air movement, No rhonchi, No wheeze, No rales Cardiovascular: Regular rate, Regular Rhythm, Normal S1, Normal S2, No murmurs Abdomen: Soft, Non Tender, Non-Distended, No Hepato-splenomegaly Extremities: No edema, Capillary Refill Less than 3 Seconds Skin: No rashes, No breakdown Neurological: Neuro grossly intact, Sensory exam intact to light touch and pain Psych/Mental Status: Normal Affect, Appropriate Laboratory Results 12/18/19 05:30: WBC 8.7, RBC 3.64 L, Hgb 10.6 L, Hct 33.4 L, MCV 91.8, MCH 29.1, MCHC 31.7 L, RDW Std Deviation 42.7, RDW Coeff of [place]ke[place] 12.8, Plt Count 291, MPV 9.9, Immature Gran % (Auto) 0.200, Neut % (Auto) 61.6, Lymph % (Auto) 26.6, Hardy % (Auto) 8.8, Eos % (Auto) 2.5, Baso % (Auto) 0.3, Absolute Neuts (auto) 5.4, Absolute Lymphs (auto) 2.32, Nucleated RBC % 0 12/18/19 05:30: Sodium 138, Potassium 3.6, Chloride 106, Carbon Dioxide 28.0, Anion Gap 4 L, BUN 16, Creatinine 1.08 H, Estim Creat Clear Calc 45.48, Est GFR (MDRD) Af Amer 65, Est GFR (MDRD) Non-Af 54 L, BUN/Creatinine Ratio 14.8, Glucose 111 H, Calcium 9.1 Current Medications Acetaminophen (Tylenol) 650 mg PO Q6H PRN PRN PRN Reason: Pain Score 1-10/Temp > 100.7 F Aspirin (Ecotrin) 81 mg PO DAILY@0800 [facility] Last Admin: 12/18/19 09:28 Dose: 81 mg Documented by: Colchicine (Colchicine) 0.6 mg PO BID [facility] Last Admin: 12/18/19 09:28 Dose: 0.6 mg Documented by: Glucagon () 1 mg IM .X1 PRN PRN Reason: Hypoglycemia Heparin Sodium (Porcine) (Heparin Na) 0 unit IV UD PRN; Protocol Last Admin: 12/17/19 07:39 Dose: 1,000 unit Documented by: Hydrochlorothiazide (Hctz) 25 mg PO DAILY [facility] Last Admin: 12/18/19 09:28 Dose: Not Given Documented by: Dextrose (Dextrose 10%-Water) 250 mls @ 999 mls/hr IV .Q16M PRN; Protocol PRN Reason: HYPOGLYCEMIA Sodium Chloride () 1,000 mls @ 0 mls/hr IV .Q0M [facility] Ibuprofen (Motrin) 400 mg PO Q6 [facility] Last Admin: 12/18/19 05:54 Dose: 400 mg Documented by: Labetalol HCl (Trandate) 10 mg IV Q4H PRN PRN PRN Reason: SBP > 160 Losartan Potassium (Cozaar) 25 mg PO DAILY [facility] Last Admin: 12/18/19 09:28 Dose: 25 mg Documented by: Magnesium Oxide (Mag-Ox 400) 400 mg PO QODAY [facility] Last Admin: 12/18/19 09:28 Dose: Not Given Documented by: Melatonin (Melatonin) 3 mg PO QHS PRN PRN PRN Reason: INSOMNIA Nitroglycerin (Nitrostat) 0.4 mg SUBLINGUAL Q5M PRN PRN Reason: CARDIAC/CHEST PAIN Last Admin: 12/17/19 01:48 Dose: 1 tablet Documented by: Ondansetron HCl (Zofran) 4 mg IV Q8H PRN PRN PRN Reason: NAUSEA/VOMITING Pantoprazole Sodium (Protonix) 20 mg PO DAILY [facility] Last Admin: 12/18/19 09:27 Dose: 20 mg Documented by: Pyridoxine HCl (Vitamin B-6) 100 mg PO DAILY [facility] Last Admin: 12/18/19 09:27 Dose: 100 mg Documented by: Sodium Chloride () 10 - 40 ml IV UD PRN PRN Reason: SALINE FLUSH Last Admin: 12/17/19 12:12 Dose: 10 ml Documented by: Discharge Activity: Return to Normal Activity Call your doctor if you observe: Fever of 101 or Higher, Shortness of breath, Dizziness, Fainting spells, Swelling in the ankles, Chest pain, Increased palpitations (irregular heartbeat) Home Medications: Medications to take at Discharge Ascorbic Acid [Vitamin C] 1,000 mg PO 12/16/19 Ascorbic Acid/Bioflavonoids [C 1,340-Rfxrpkqfjtwnr-Iw Cap] 1 ea PO DAILY 12/16/19 Aspirin [Aspirin EC] 81 mg PO DAILY 12/16/19 Biotin/Silicon Diox/l-Cysteine [[place] Matrix 5000 ER Tablet] 1 ea PO DAILY 12/16/19 Cholecalciferol (Vitamin D3) [Vitamin D3] 5,000 unit PO QWEEK 12/16/19 Green Tea [place] Extract [Green Tea] 250 mg PO DAILY 12/16/19 Hydrochlorothiazide [Hctz] 25 mg PO DAILY 12/16/19 Losartan Potassium [Cozaar] 25 mg PO DAILY 12/16/19 Lysine 1,000 mg PO PRN PRN 12/16/19 Magnesium Oxide 500 mg PO QODAY 12/16/19 Methylsulfonylmethane [MSM] 1,000 mg PO DAILY 12/16/19 Niacin (Inositol Niacinate) [Niacin 500 mg Capsule] 500 mg PO DAILY 12/16/19 Omeprazole 20 mg PO DAILY 12/16/19 Potassium 2 tab PO QHS 12/16/19 Potassium 3 tab PO BREAKFAST 12/16/19 Pyridoxine HCl [Vitamin B-6] 100 mg PO DAILY 12/16/19 Red Yeast Rice 600 mg PO DAILY 12/16/19 Thiamine HCl [Vitamin B-1] 250 mg PO DAILY 12/16/19 Turmeric/Turmeric Root Extract [Turmeric 450-50 mg Capsule] 1 ea PO TID 12/16/19 Ubidecarenone/Vit E/Vit E Mix [Co-Enzyme Q10 100 mg Softgel] 1 tab PO DAILY 12/16/19 Vit A Palm,D3 in Cod Liver Oil [Sv Cod Liver Oil Softgel] 1 ea PO DAILY 12/16/19 Colchicine 0.6 mg PO BID #60 tab 12/18/19 Following Prescrptions Were Given to Patient: Colchicine 0.6 mg PO BID #60 tab Transmission Status: Sent to [facility] Primary Care Physician: Carley Mcdonnell NP-C [Primary Care Provider] - Please follow up with your Primary Care Physician in: 3-5 days Please Follow Up With: Arnold Cleveland MD When: 2-4 weeks Disposition: Home Minutes spent on discharge:: 35 Patient Condition:: Stable Medical Necessity - Tobacco Use Smoking Status: Never smoker Meaningful Use Info Meaningful Use Diagnoses (Choose all that apply): None applicable Code Visit Inpatient E&M: 11248 Disch Hosp
--- NOTE | 2019-12-18 11:40 | PHA.DC.MC ---
Pharmacy Service has performed discharge medication reconciliation and counseling for this patient. 1. COLCHICINE 0.6MG PO BID The patient's discharge medication list was reviewed for discrepancies and discrepancies were resolved. Home Medications Ascorbic Acid [Vitamin C] 1,000 mg PO 12/16/19 Ascorbic Acid/Bioflavonoids [C 1,367-Ubskqittqlgmt-Dp Cap] 1 ea PO DAILY 12/16/19 Aspirin [Aspirin EC] 81 mg PO DAILY 12/16/19 Biotin/Silicon Diox/l-Cysteine [[place] Matrix 5000 ER Tablet] 1 ea PO DAILY 12/16/19 Cholecalciferol (Vitamin D3) [Vitamin D3] 5,000 unit PO QWEEK 12/16/19 Green Tea [place] Extract [Green Tea] 250 mg PO DAILY 12/16/19 Hydrochlorothiazide [Hctz] 25 mg PO DAILY 12/16/19 Losartan Potassium [Cozaar] 25 mg PO DAILY 12/16/19 Lysine 1,000 mg PO PRN PRN 12/16/19 Magnesium Oxide 500 mg PO QODAY 12/16/19 Methylsulfonylmethane [MSM] 1,000 mg PO DAILY 12/16/19 Niacin (Inositol Niacinate) [Niacin 500 mg Capsule] 500 mg PO DAILY 12/16/19 Omeprazole 20 mg PO DAILY 12/16/19 Potassium 2 tab PO QHS 12/16/19 Potassium 3 tab PO BREAKFAST 12/16/19 Pyridoxine HCl [Vitamin B-6] 100 mg PO DAILY 12/16/19 Red Yeast Rice 600 mg PO DAILY 12/16/19 Thiamine HCl [Vitamin B-1] 250 mg PO DAILY 12/16/19 Turmeric/Turmeric Root Extract [Turmeric 450-50 mg Capsule] 1 ea PO TID 12/16/19 Ubidecarenone/Vit E/Vit E Mix [Co-Enzyme Q10 100 mg Softgel] 1 tab PO DAILY 12/16/19 Vit A Palm,D3 in Cod Liver Oil [Sv Cod Liver Oil Softgel] 1 ea PO DAILY 12/16/19 Colchicine 0.6 mg PO BID #60 tab 12/18/19 The patient was counseled on the following discharge medications and changes in medications for homegoing were reviewed. The Reason for Use, instructions for use, and potential side effects were reviewed for all new medications. The patient's questions regarding all of their medications were answered. The patient was able to verbally demonstrate an understanding of their discharge medications.
--- NOTE | 2019-12-18 12:56 | CASEMGMT ---
Pt to be sent home on Colchicine and per [facility] retail pharmacy, pt's co-pay is $304 at this time even for the generic. Per Melissa CARDOSO, pt states that she cannot pay for this at this time. Dr. Singh aware and states that he amended the discharge instructions so that pt will now take Ibuprofen 600-800mg TID until symptoms resolve and then pt to f/u with PCP/cardiology to ensure resolution of symptoms. Deann PCU charge aware and new instructions printed for pt at this time. Nikolas CARDOSO CM
--- NOTE | 2019-12-19 16:39 | CL.D_ITS ---
Patient Name: LINWOOD ROBISON Study Date: 12/17/2019 Performing: Floridalma Cleveland MD Ht: 65 inches 165 cm : 1950 Wt: 236.2 lbs 107 kg Age: 68 Gender: female BSA: 2.12 PROCEDURE(S) PERFORMED HF85-FXQ/COR/LV CLINICAL PROFILE AND INDICATIONS Indications: ACS <= 24 hrs Heart Failure: None Stress/Imaging Stress/Image Study Performed: No CAD Presentations: Non-STEMI. Symptom onset Date/Time: Time Not Available CONCLUSIONS No significant CAD. Preserved EF. No significant or MR. The cuase of patient's elevated T-I is lik marlene myopericarditis. RECOMMENDATIONS DESCRIPTION OF PROCEDURE The patient arrived to the procedure lab. The risks and benefits of the procedure as well as a full d escription of our services here and current unavailability of surgical backup were fully explained to the patient and/or their significant other prior to the catheterization. The Timeout was completed, verifying the correct patient and procedure. The patient's procedural site was prepped and draped in the usual fashion. Local anesthetic was given subcutaneously to right radial region with Lidocaine 2% . Using a modified Seldinger technique, arterial access was obtained via the right radial artery, a 6 Fr sheath was inserted. Left Coronary Artery selective angiography was performed in multiple views u sing a 5 Fr. JL3.5 catheter. Left Ventriculography was performed in [place]E projection using a 5 Fr.JR4. LV to AO pullback pressures were then recorded. Right Coronary Artery selective angiography was then performed in multiple views using a 5 Fr. 3DRC (Juan Luis) catheter.The arterial sheath was pulled and a TR Band was applied for hemostasis CORONARY ANGIOGRAPHY DOMINANCE: Left Dominant LEFT HEART ASSESSMENT Left Ventricular Ejection Fraction: by LV Gram 65 % Normal LV wall motion LEFT MAIN: Angiographically normal LEFT ANTERIOR DESCENDING ARTERY: Mild luminal irregularities CIRCUMFLEX ARTERY: Mild luminal irregularities RIGHT CORONARY ARTERY: Mild luminal irregularities VALVE FINDINGS: No Aortic Valve Stenosis No Mitral Insufficency COMPLICATIONS No Complications PROCEDURE MEDICATIONS Versed 1 mg IV Fentanyl 50 mcg IV Oxygen: 2 L/min via nasal cannula Heparin given IA 12/17/2019 13:07:52 Verapamil 2.5mg, Ntg 100mcgs, 3000 units of Heparin given IA 12/17/2019 13:07:52 SUMMARY OF HEMODYNAMIC DATA Time AIR REST ECG 12:41:21 AO 95/60 (76) SA 13:09:44 LV 141/5, 17 13:14:48 LV 134/8, 13 13:14:55 LV 143/-3, 13 13:15:24 LV 142/-3, 8 13:15:31 LVp 145/-3, 12 13:15:39 AOp 121/61 (86) 13:15:44 Signed By Floridalma Cleveland MD On 12/19/2019 16:39:04 Floridalma Cleveland MD
== END 2019-12-18 14:39 | disposition home or self-care (01) | DRG 287 ==
PROVIDERS: Admitting Provider Hospitalist; PCP Nurse Practitioner Family; Visit Provider Family Medicine
DX: I31.9 Disease of pericardium, unspecified (principal); I10 Essential (primary) hypertension; E78.5 Hyperlipidemia, unspecified; E66.01 Morbid (severe) obesity due to excess calories; R73.03 Prediabetes; Z68.39 Body mass index [BMI] 39.0-39.9, adult; Z79.82 Long term (current) use of aspirin; Z86.73 Personal history of transient ischemic attack (TIA), and cerebral infarction without residual deficits; Z82.49 Family history of ischemic heart disease and other diseases of the circulatory system
CPT/HCPCS: 36415; 71275; 80048; 80061; 84484; 85025; 85730; 93005; 93458; 99152; 99153; 99251; J7030; J7040; Q9967; A4216; C1769; C1894; G0463

== ENCOUNTER → 2020-01-01 14:25 | Outpatient (CLI) | payer MEDICARE, OTHER, SELFPAY ==
[2020-01-01 13:57] VITALS: BMI 39.0
== END ==
PROVIDERS: PCP Nurse Practitioner Family; Referring Provider Specialist; Visit Provider Specialist
DX: S55.101A Unspecified injury of radial artery at forearm level, right arm, initial encounter (principal); I25.2 Old myocardial infarction; I10 Essential (primary) hypertension; E78.5 Hyperlipidemia, unspecified; R09.89 Other specified symptoms and signs involving the circulatory and respiratory systems; Z98.890 Other specified postprocedural states
CPT/HCPCS: 93931

== ENCOUNTER 2021-10-12 18:26 | Emergency (ER) | payer MEDICARE, OTHER, SELFPAY ==
[2021-10-12 18:29] VITALS: BP 187/78; PULSE 77; RESP 18; TEMP 36.4; O2SAT 108; BMI 39.1
--- NOTE | 2021-10-12 18:59 | CT_ITS ---
STUDY: CT HEAD STROKE PROTOCOL W/O CONTRAST INJECTION REASON FOR EXAM: Female, 70 years old. Neuro deficit, acute, stroke suspected RADIATION DOSAGE (If Supplied By Facility): CTDIvol = ( ) mGy, DLP = ( ) mGycm TECHNIQUE: Transaxial CT imaging of the brain was performed without administration of intravenous contrast material. Individualized dose optimization techniques were used for this CT. COMPARISON: No relevant priors. FINDINGS: Normal soft tissue structures. There is hyperostosis frontalis internus. Normal size ventricles and extra-axial spaces for the patient''s age. Normal white matter tracts of the cerebral hemispheres. Normal basal ganglia and thalami. Normal brainstem. Normal cerebellum. No demonstrated dense artery sign. No focal parenchymal edema is present. Focal cortical hyperostosis noted at the right ann clival junction. There is no intracranial hemorrhage. There are no findings of an acute ischemic infarction. Normal visualized paranasal sinuses. ASPECT score: 10 CT/STROKE Brain/Head without Cont IMPRESSION: Normal unenhanced CT scan of the brain. N.B. : The above Results were Read Back by Jamir Ospina MD to Dr. Barb MD, and understanding confirmed on 10/12/2021 19:40:43 (ET). Electronically Signed: Jamir Ospina MD at 19:41 EST , Service support ,
--- NOTE | 2021-10-12 18:59 | EKG12_ITS ---
Test Reason : NEURO Blood Pressure : / mmHG Vent. Rate : 068 BPM Atrial Rate : 068 BPM P-R Int : 100 ms QRS Dur : 080 ms QT Int : 420 ms P-R-T Axes : 040 -08 029 degrees QTc Int : 446 ms Sinus rhythm with short ID Otherwise normal ECG Confirmed by YESENIA CAT, NARENDRA ([id number]), editor greeting card CRISTHIAN BARKLEY ([id number]) on 10/14/2021 10:48:21 AM Referred By: LONNY Confirmed By:NARENDRA PATTERSON MD
[2021-10-12 19:13] LABS: Absolute Lymphocyte Count 3.21 X10^3/uL (0.83-4.51); Absolute Neutrophil Count 4.1 X10^3/uL (2.0-7.7); Basophil# 0.03 X10^3/uL; Basophil% 0.4 % (0-1); Eosinophil# 0.19 X10^3/uL; Eosinophils% 2.4 % (0-5); Hematocrit 40.6 % (37-47); Lymphocyte # 3.21 X10^3/ul (0.83-4.51); Lymphocyte % 40.2 % (19-41); Mean Corpuscular Hgb 28.8 pg (27.0-32.0); Mean Corpuscular Volume 89.8 fL (81-99); Mean Platelet Vol. 10.1 fl (6.2-12.0); Monocyte# 0.48 X10^3/uL; NRBC Flagged by Analyzer 0 % (0-5); Neutrophil # 4.06 X10^3/uL (2.7-7.7); Neutrophil % 50.7 % (47-70); Platelet Count 370 K/mm3 (150-450); RBC Distribution Width CV 13.2 % (11.6-14.6); RBC Distribution Width SD 43.2 fl (35.1-43.9); Red Blood Count 4.52 M/mm3 (4.2-5.4)
[2021-10-12 19:18] LABS: International Normalized Ratio 0.9; Partial Thromboplast Time 27.3 Seconds (24.1-36.2)
[2021-10-12 19:27] LABS: Anion Gap 7 (5-15); BUN 15 mg/dL (7-18); BUN/Creat Ratio 13.5 RATIO (10-20); Calcium,Total 9.9 mg/dL (8.5-10.1); Chloride 103 mmol/L (98-107); Creatinine, Serum 1.11 mg/dL (0.55-1.02); EST Glomerular Filtration Rate 52 mL/min (>60); Est Glom Filt Rate - Afr Amer 63 mL/min (>60); Estimated Creatinine Clearance 43.04 ml/min; Glucose 145 mg/dL (74-106); Potassium 3.2 mmol/L (3.5-5.1); Sodium Level 140 mmol/L (136-145); Troponin-I HS 79 pg/mL (3.0-54.0)
--- NOTE | 2021-10-12 19:30 | RAD_ITS ---
STUDY: X-RAY CHEST REASON FOR EXAM: Female, 70 years old. Neuro deficit, acute, stroke suspected TECHNIQUE: Single AP portable view of the chest. COMPARISON: None. FINDINGS: The lungs are clear and expanded. There is no demonstrated pleural abnormality. Normal size heart. Normal mediastinum and linda. Normal visualized pulmonary arteries. There is atherosclerotic calcification of the aortic arch with tortuosity. There are diffuse degenerative changes of the visualized thoracic spine. Normal visualized ribs, clavicles, and shoulders. There is no demonstrated abnormality of the visualized soft tissue structures of the upper abdomen. RAD/Chest 1 View IMPRESSION: Degenerative changes, as described above. No demonstrated acute cardiopulmonary process. Electronically Signed: Jamir Ospina MD at 20:26 EST , Service support ,
[2021-10-12 19:52] VITALS: BP 172/71; PULSE 69; RESP 18; O2SAT 100
[2021-10-12 20:01] LABS: Bedside Glucose 123 mg/dL (70-110)
--- NOTE | 2021-10-12 20:07 | EX.ED.DYSGE1 ---
HPI History of Present Illness Chief Complaint: Neuro S/Sx Informant: patient and family Narrative Narrative: 70-year-old female states that she was driving tonight when she showed got bright objects coming down in her vision. Started initially in the left eye and then was also in the right eye. She then developed headache. She states that this is happened in 2019 but only involve the left eye and was later determined that she had a occipital stroke. She was not hospitalized for it but states that she saw neurology as an outpatient. [facility] Medical History (Updated 10/12/21 @ 21:[address] Bebo Day, DO) Essential hypertension GERD (gastroesophageal reflux disease) Histoplasmosis HLD (hyperlipidemia) Myopericarditis NSTEMI (non-ST elevated myocardial infarction) ROSALIA (obstructive sleep apnea) Prediabetes Thalamic stroke (~2019) Home Medications ascorbic acid-bioflavonoids 1 ea PO DAILY 12/16/19 [History Last Taken 12/16/19] aspirin 81 mg PO DAILY 12/16/19 [History Last Taken 12/16/19] biotin-silicon [id number] 1 ea PO DAILY 12/16/19 [History Last Taken 12/16/19] coenzyme Q10-vit E-vit E mixed 1 tab PO DAILY 12/16/19 [History Last Taken 12/16/19] green tea leaf extract 250 mg PO DAILY 12/16/19 [History Last Taken 12/16/19] hydrochlorothiazide 25 mg PO DAILY 12/16/19 [History Last Taken 12/16/19] losartan 25 mg PO DAILY 12/16/19 [History Last Taken 12/16/19] lysine 1,000 mg PO PRN PRN 12/16/19 [History Last Taken Unknown] methylsulfonylmethane 1,000 mg PO DAILY 12/16/19 [History Last Taken 12/16/19] omeprazole 20 mg PO DAILY 12/16/19 [History Last Taken 12/16/19] potassium 3 tab PO BREAKFAST 12/16/19 [History Last Taken 12/16/19] pyridoxine (vitamin B6) 100 mg PO DAILY 12/16/19 [History Last Taken 12/16/19] red yeast rice 600 mg PO DAILY 12/16/19 [History Last Taken 12/16/19] thiamine HCl (vitamin B1) 250 mg PO DAILY 12/16/19 [History Last Taken 12/16/19] turmeric-turmeric root extract 1 ea PO TID 12/16/19 [History Last Taken 12/16/19] vit A palm,D3 in cod liver oil 1 ea PO DAILY 12/16/19 [History Last Taken 12/16/19] cholecalciferol (vitamin D3) 125 mcg (5,000 unit) disintegrating tablet 5,000 unit PO 2XW tab 01/09/20 [History Last Taken Unknown] ibuprofen 600 mg tablet 600 mg PO BID PRN tab 01/09/20 [History Last Taken Unknown] magnesium oxide 500 mg tablet 500 mg PO QHS tab 01/09/20 [History Last Taken Unknown] niacin (inositol niacinate) 500 mg capsule 1,000 mg PO DAILY cap 01/09/20 [History Last Taken Unknown] Allergy/AdvReac Type Severity Reaction Status Date / Time latex Allergy Hives Verified 10/12/21 18:30 Penicillins Allergy Unknown Verified 10/12/21 18:30 Family History Mother Hypertension CVA (cerebral vascular accident) Heart disease Hyperlipidemia Father Hyperlipidemia Hypertension Heart disease AAA (abdominal aortic aneurysm) Grandfather Cancer lung Uncle AAA (abdominal aortic aneurysm) Aunt AAA (abdominal aortic aneurysm) Surgical History History of left heart catheterization (~12/17/19) History of left knee surgery Social History Smoking Status: Never smoker alcohol intake: current alcohol intake frequency: holidays/special occasions only Alcohol type: wine substance use type: does not use caffeine: Yes Type: coffee Number of servings: 2 ROS ROS ED Constitutional Constitutional ED: Denies chills or weight loss Eyes Eyes: Reports change in vision; Denies diplopia ENT ENT ED: Denies ear pain, rhinorrhea or sore throat Cardiovascular Cardiovascular: Denies chest pain, orthopnea, palpitations or racing heartbeat Respiratory/Chest Respiratory/Chest: Denies cough, dyspnea or orthopnea Gastrointestinal Gastrointestinal: Denies abdominal pain, diarrhea, nausea or vomiting Genitourinary Genitourinary ED: Denies dysuria, hematuria or urinary frequency Musculoskeletal Musculoskeletal: Denies arthralgias or myalgias Integumentary Denies abscess or rash Neurologic Neurologic: Reports headache(s); Denies weakness Psychiatric Psychiatric: Denies anxiety, depression, suicidal ideation or suicidal thoughts Endocrine Endocrinology: Denies polydipsia, polyphagia or polyuria Allergic/Immunologic Allergic/Immunologic ED: Denies mouth swelling, tongue swelling or urticaria EXAM Physical Exam Const Vital Signs: 10/12/21 18:29 10/12/21 19:52 10/12/21 20:15 Temperature 97.6 F L Temperature Source Temporal Pulse Rate 77 69 72 Respiratory Rate 18 18 14 Blood Pressure 187/78 H 172/71 H 173/79 H Blood Pressure Mean 114 104 110 Pulse Ox 108 100 100 Oxygen Delivery Method Room Air Room Air Room Air 10/12/21 21:22 Temperature Temperature Source Pulse Rate 75 Respiratory Rate 14 Blood Pressure 137/85 H Blood Pressure Mean 102 Pulse Ox 100 Oxygen Delivery Method Room Air Positive well nourished, well developed and obese General Appearance ED: well developed Nutritional Appearance: obese HEENT Reports normocephalic, head/scalp atraumatic, TM's clear and moist mucous membranes Negative for trauma Tympanic Membrane ED: Yes TM's clear Eyes PERRL and EOMs intact bilaterally Eyes Narrative: Negative funduscopic exam. Neck no lymphadenopathy, supple and no JVD Resp normal respiratory effort and clear to auscultation bilaterally Cardio regular rate, regular rhythm and no murmurs GI normal to inspection, nondistended, normoactive bowel sounds and non-tender Palpation: soft Back/Spine no CVA tenderness and normal ROM Extremity normal to inspection General Extremety ED: Negative for edema General Extremity: Negative for edema Neuro oriented x3 and CN's II-XII intact bilaterally Sensorium / Orientation: alert Motor Exam: strength 5/5 throughout Psych mental status grossly normal Mood & Affect: Negative for depressed or tearful Skin no rashes or lesions noted and no wounds MDM MDM MDM Narrative Medical decision making narrative: Patient history the patient seems to be having more of an ocular migraine. I did do a stroke evaluation NIH is [address] CTA is negative. Basic blood work is rather unremarkable. Troponin high-sensitivity is 79 with a normal EKG and no complaints of chest pain. My interpretation of the chest x-ray is no acute process. Patient's headache subsided and all of her visual disturbance went away. I discussed the case with the hospitalist and we both feel that this most likely an ocular migraine. Patient to follow-up with her neurologist return if worsening or concerns Lab Data Attestation: I reviewed the patient's lab results. Labs: Laboratory Results - last 24 hr 10/12/21 10/12/21 10/12/21 18:40 18:40 18:40 WBC 8.0 RBC 4.52 Hgb 13.0 Hct 40.6 MCV 89.8 MCH 28.8 MCHC 32.0 RDW Std Deviation 43.2 RDW Coeff of [place] 13.2 Plt Count 370 MPV 10.1 Immature Gran % (Auto) 0.300 Neut % (Auto) 50.7 Lymph % (Auto) 40.2 Carver % (Auto) 6.0 Eos % (Auto) 2.4 Baso % (Auto) 0.4 Absolute Neuts (auto) 4.1 Absolute Lymphs (auto) 3.21 Nucleated RBC % 0 PT 12.0 INR 0.9 APTT 27.3 Sodium 140 Potassium 3.2 L Chloride 103 Carbon Dioxide 30.0 Anion Gap 7 BUN 15 Creatinine 1.11 H Estim Creat Clear Calc 43.04 Est GFR (MDRD) Af Amer 63 Est GFR (MDRD) Non-Af 52 L BUN/Creatinine Ratio 13.5 Glucose 145 H Calcium 9.9 Troponin I High Sens 79 H POC Glucose 10/12/21 19:52 WBC RBC Hgb Hct MCV MCH MCHC RDW Std Deviation RDW Coeff of [place] Plt Count MPV Immature Gran % (Auto) Neut % (Auto) Lymph % (Auto) Carver % (Auto) Eos % (Auto) Baso % (Auto) Absolute Neuts (auto) Absolute Lymphs (auto) Nucleated RBC % PT INR APTT Sodium Potassium Chloride Carbon Dioxide Anion Gap BUN Creatinine Estim Creat Clear Calc Est GFR (MDRD) Af Amer Est GFR (MDRD) Non-Af BUN/Creatinine Ratio Glucose Calcium Troponin I High Sens POC Glucose 123 H Radiography Diagnostic Testing: Clinical Impression(s) from Imaging Studies Brain CT 10/12/21 18:59 IMPRESSION: Normal unenhanced CT scan of the brain. N.B. : The above Results were Read Back by Jamir Ospina MD to Dr. Barb MD, and understanding confirmed on 10/12/2021 19:40:43 (ET). Electronically Signed: Jamir Ospina MD at 19:41 EST , Service support , ADDENDUM: 10/12/211947 IMPRESSION: Normal unenhanced CT scan of the brain. N.B. : The above Results were Read Back by Jamir Ospina MD to Dr. Barb MD, and understanding confirmed on 10/12/2021 19:40:43 (ET). Electronically Signed: Jamir Ospina MD at 19:41 EST , Service support , Chest X-Ray 10/12/21 19:30 IMPRESSION: Degenerative changes, as described above. No demonstrated acute cardiopulmonary process. Electronically Signed: Jamir Ospina MD at 20:26 EST , Service support , Head/Neck CTA 10/12/21 20:20 IMPRESSION: Negative CTA carotid and CTA brain.ALL ABOVE CR[facility]IA BY [facility]. Electronically Signed: Vasquez Esteves MD at 20:50 EST , Service support , EKG Initial EKG: Attestation: I personally reviewed and interpreted this EKG as follows: Comments: Sinus rhythm with a ventricular rate of 68 bpm Discharge Plan Triage Chief Complaint: Neuro S/Sx ED Provider: Bebo Day Dx/Rx/DC Orders Clinical Impression: Ocular migraine Prescriptions: No Action ibuprofen 600 mg tablet 600 mg PO BID PRNRF: 0 methylsulfonylmethane 1,000 MG capsule 1,000 mg PO DAILY RF: 0 lysine 1,000 MG tablet 1,000 mg PO PRN PRN (Reason: Supplement Warehouse Order Filler) RF: 0 thiamine HCl (vitamin B1) 250 MG tablet 250 mg PO DAILY RF: 0 aspirin 81 MG tablet,delayed release (DR/EC) 81 mg PO DAILY RF: 0 potassium 99 MG tablet 3 tab PO BREAKFAST RF: 0 green tea leaf extract 250 MG capsule 250 mg PO DAILY RF: 0 losartan 25 MG tablet 25 mg PO DAILY RF: 0 hydrochlorothiazide 25 MG tablet 25 mg PO DAILY RF: 0 pyridoxine (vitamin B6) 100 MG tablet 100 mg PO DAILY RF: 0 ascorbic acid-bioflavonoids 1 EACH capsule 1 ea PO DAILY RF: 0 red yeast rice 600 MG capsule 600 mg PO DAILY RF: 0 omeprazole 20 MG tablet,delayed release (DR/EC) 20 mg PO DAILY RF: 0 vit A palm,D3 in cod liver oil 1 EACH capsule 1 ea PO DAILY RF: 0 biotin-silicon [id number] 1 EACH tablet extended release 1 ea PO DAILY RF: 0 turmeric-turmeric root extract 1 EACH capsule 1 ea PO TID RF: 0 coenzyme Q10-vit E-vit E mixed 1 EACH capsule 1 tab PO DAILY RF: 0 cholecalciferol (vitamin D3) 5,000 unit tablet,disintegrating 5,000 unit PO 2XW RF: 0 magnesium oxide 500 mg tablet 500 mg PO QHS RF: 0 niacin (inositol niacinate) 500 mg capsule 1,000 mg PO DAILY RF: 0 Primary Care Provider: Carley Mcdonnell NP Referrals: Carley Mcdonnell NP, [employer] [facility] [Primary Care Provider] - As Needed Activity Restrictions/Additional Instructions: I would recommend following up with your neurologist. Return if worsening or concerns Disposition Disposition: Home, Self Care
[2021-10-12 20:15] VITALS: BP 173/79; PULSE 72; RESP 14; O2SAT 100
--- NOTE | 2021-10-12 20:20 | CT_ITS ---
EXAM: CT ANGIOGRAPHY HEAD AND NECK WITH INTRAVENOUS CONTRAST CLINICAL INDICATION: stroke TECHNIQUE: [place] [facility] [place]/head and neck CT angiography protocol performed with intravenous contrast. This CT exam was performed using one or more of the following dose reduction techniques: automated exposure control, adjustment of the mA and/or kV according to patient size, and/or use of iterative reconstruction technique. This report was created using [employer] report generation technology. MIP reconstructed images were created and reviewed. CONTRAST: IV 100mL [id number] COMPARISON: None. FINDINGS: HEAD: RIGHT ANTERIOR CEREBRAL ARTERY: Unremarkable. No significant stenosis at the visualized segments. Anterior communicating artery is present. No aneurysm. RIGHT MIDDLE CEREBRAL ARTERY: Unremarkable. No significant stenosis at the visualized segments. No aneurysm. RIGHT POSTERIOR CEREBRAL ARTERY: Unremarkable. No occlusion or significant stenosis. No aneurysm. LEFT ANTERIOR CEREBRAL ARTERY: Unremarkable. No significant stenosis at the visualized segments. No aneurysm. LEFT MIDDLE CEREBRAL ARTERY: Unremarkable. No significant stenosis at the visualized segments. No aneurysm. LEFT POSTERIOR CEREBRAL ARTERY: Unremarkable. No occlusion or significant stenosis. No aneurysm. BASILAR ARTERY: Unremarkable. No significant stenosis. No aneurysm. GREAT VESSELS OF AORTIC ARCH: Unremarkable. Normal anatomy, patent. OTHER VASCULATURE: No vascular malformation. NECK: RIGHT COMMON CAROTID ARTERY: Unremarkable. No significant stenosis. No dissection or occlusion. RIGHT INTERNAL CAROTID ARTERY: Unremarkable. No significant stenosis. No dissection or occlusion. RIGHT EXTERNAL CAROTID ARTERY: Unremarkable. No occlusion. RIGHT VERTEBRAL ARTERY: Unremarkable. No significant stenosis. No dissection or occlusion. LEFT COMMON CAROTID ARTERY: Unremarkable. No significant stenosis. No dissection or occlusion. LEFT INTERNAL CAROTID ARTERY: Unremarkable. No significant stenosis. No dissection or occlusion. LEFT EXTERNAL CAROTID ARTERY: Unremarkable. No occlusion. LEFT VERTEBRAL ARTERY: Unremarkable. No significant stenosis. No dissection or occlusion. LUNG APICES: Unremarkable as visualized. SOFT TISSUES: Unremarkable. CAROTID STENOSIS REFERENCE USING NASCET CRITERIA: % ICA stenosis = (1 - narrowest ICA diameter/diameter of distal cervical ICA) x 100. Mild - <50% stenosis. Moderate - 50-69% stenosis. Severe - 70-94% stenosis. Near occlusion - 95-99% stenosis. Occluded - 100% stenosis. CT/CTA Head AND Neck W/ Contrast IMPRESSION: Negative CTA carotid and CTA brain.ALL ABOVE CRITERIA BY NASCET. Electronically Signed: Vasquez Esteves MD at 20:50 EST , Service support ,
[2021-10-12 20:34] VITALS: BMI 39.0
[2021-10-12 21:22] VITALS: BP 137/85; PULSE 75; RESP 14; O2SAT 100
== END 2021-10-12 22:03 | disposition home or self-care (01) ==
PROVIDERS: Emergency Provider Emergency Medicine; PCP Nurse Practitioner Family
DX: G43.109 Migraine with aura, not intractable, without status migrainosus (principal); I25.2 Old myocardial infarction; G47.33 Obstructive sleep apnea (adult) (pediatric); E66.9 Obesity, unspecified; I10 Essential (primary) hypertension; Z79.82 Long term (current) use of aspirin; Z79.899 Other long term (current) drug therapy; Z86.73 Personal history of transient ischemic attack (TIA), and cerebral infarction without residual deficits
CPT/HCPCS: 70450; 70496; 70498; 71045; 80048; 82962; 84484; 85025; 85610; 85730; 93005; 99284; Q9967; A4216

== ENCOUNTER → 2025-04-12 | Outpatient (CLI) | payer MEDICARE, OTHER, SELFPAY ==
--- NOTE | 2025-04-12 15:20 | RAD_ITS ---
PROCEDURE: HIP, UNI W/ PELVIS 2-3 VIEWS 04/12/2025 REASON FOR EXAM: PAIN IN RIGHT HIP TECHNIQUE: Three views of the right hip COMPARISON: None FINDINGS: No displaced fracture. Diffuse osteopenia. There is [id number] joint space narrowing in both hips. Degenerative changes of the sacroiliac joints and lumbar spine. Phleboliths in the pelvis. RAD/HIP, UNI W/ Pelvis 2-3 Views IMPRESSION: [id number] osteoarthritis of the hips. Diffuse osteopenia. Reading Location: [id number]
== END | disposition home or self-care (01) ==
LOC: RAD 14:58
PROVIDERS: PCP Nurse Practitioner Family
DX: M25.551 Pain in right hip (principal)
CPT/HCPCS: 73502